=== PATIENT | female | born 1985 | race Caucasian/White ===

== ENCOUNTER 2019-03-25 03:01 | Emergency (ER) | payer SELFPAY ==
[2019-03-25] MEDS ORDERED: HYDROcodone/Acetaminophen 10/325 mg Tablet ONE (03:19)
[2019-03-25] MEDS ORDERED: Clindamycin 150 MG CAP ONE (03:20)
[2019-03-25] MEDS ORDERED: Ibuprofen 800 MG TAB ONE (03:20)
[2019-03-25] MEDS ORDERED: Acetaminophen 325 MG TAB ONE (03:20)
== END 2019-03-25 03:29 | disposition home or self-care (01) ==
LOC: MADERS 03:01
DX: K04.7 Periapical abscess without sinus (principal); K02.9 Dental caries, unspecified; F41.9 Anxiety disorder, unspecified; F17.210 Nicotine dependence, cigarettes, uncomplicated
CPT/HCPCS: 99282

== ENCOUNTER 2019-03-25 22:41 | Emergency (ER) | payer SELFPAY ==
[2019-03-25] MEDS ORDERED: diphenhydrAMINE 50 MG/ML VIAL ONE (23:09)
[2019-03-25] MEDS ORDERED: Ketorolac Tromethamine 30 MG/ML VIAL ONE (23:09)
[2019-03-25] MEDS ORDERED: Sodium Chloride 0.9% 1,000 ML ONE (23:09)
[2019-03-25] MEDS ORDERED: Promethazine HCl 25 MG/ML VIAL ONE (23:09)
== END 2019-03-26 00:10 | disposition home or self-care (01) ==
LOC: MADERS 22:41
DX: G43.909 Migraine, unspecified, not intractable, without status migrainosus (principal); F17.210 Nicotine dependence, cigarettes, uncomplicated; Z79.891 Long term (current) use of opiate analgesic; Z79.1 Long term (current) use of non-steroidal anti-inflammatories (NSAID); Z79.899 Other long term (current) drug therapy
CPT/HCPCS: 96361; 96374; 96375; J1200; J1885; J2550; J7050

== ENCOUNTER 2019-05-17 16:56 | Emergency (ER) | payer MEDICAID, SELFPAY ==
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
[2019-05-17] MEDS ORDERED: HYDROcodone/Acetaminophen 5/325 mg Tablet ONE (19:22)
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
== END 2019-05-17 19:25 | disposition home or self-care (01) ==
LOC: MADERS 16:56
DX: S39.012A Strain of muscle, fascia and tendon of lower back, initial encounter (principal); S16.1XXA Strain of muscle, fascia and tendon at neck level, initial encounter; M51.36 Other intervertebral disc degeneration, lumbar region; G43.909 Migraine, unspecified, not intractable, without status migrainosus; F41.9 Anxiety disorder, unspecified; F17.210 Nicotine dependence, cigarettes, uncomplicated; Z79.899 Other long term (current) drug therapy; V89.2XXA Person injured in unspecified motor-vehicle accident, traffic, initial encounter
CPT/HCPCS: 70450; 72125; 72131; 99406

== ENCOUNTER 2019-08-10 14:40 | Emergency (ER) | payer SELFPAY | END 2019-08-10 15:05 | disposition left against medical advice (07) | LOC: MADERS 14:40 | DX: Z53.21 Procedure and treatment not carried out due to patient leaving prior to being seen by health care provider (principal) ==

== ENCOUNTER 2019-08-11 13:52 | Emergency (ER) | payer SELFPAY | END 2019-08-11 14:36 | disposition home or self-care (01) | LOC: MADERS 13:52 | DX: M54.5 Low back pain (principal); F41.9 Anxiety disorder, unspecified; F17.210 Nicotine dependence, cigarettes, uncomplicated; W01.0XXA Fall on same level from slipping, tripping and stumbling without subsequent striking against object, initial encounter | CPT/HCPCS: 99283 ==

== ENCOUNTER 2019-09-06 12:55 | Emergency (ER) | payer SELFPAY ==
[2019-09-06] MEDS ORDERED: Iopamidol 370 76% 100 ML VIAL ONE (12:56)
[2019-09-06 13:17] LABS: Bilirubin Negative (Negative); Blood, Urine Negative (Negative); Clarity Hazy (Clear); Glucose, Urine (Dipstick) Negative (Negative); Leukocyte Small (Negative); Nitrite Negative (Negative); Protein, Urine (Dipstick) Negative (Neg-Trace); Urobilinogen 0.2 mg/dL (Less than 2)
[2019-09-06 13:18] LABS: Pregnancy Test - Urine (BHCG) Negative (Negative); Pregu Control Background? CLEAR/WHITE (CLR/WHITE); Pregu Control Bar Appear? YES (CONTROL BAR)
[2019-09-06 13:23] LABS: Bacteria/HPF Rare-Few HPF (None Seen); RBC/HPF 0-3 HPF (0-3)
[2019-09-06] MEDS ORDERED: Sodium Chloride 0.9% 1,000 ML ONE (13:25)
[2019-09-06] MEDS ORDERED: Ketorolac Tromethamine 30 MG/ML VIAL ONE (13:25)
[2019-09-06 14:02] LABS: ALT (SGPT) 8 U/L (8-55); AST (SGOT) 13 U/L (5-34); Albumin 4.4 g/dL (3.5-5.0); Alkaline Phosphatase 87 U/L (40-110); Anion Gap 15 mmol/L (10-20); BUN (Urea Nitrogen) 16 mg/dL (7.0-18.7); CRP (Inflammatory) 8.58 mg/dL (= or < 0.5); Calc. Creatinine Clearance 0 mL/min (70-130); Carbon Dioxide 21 mmol/L (22-29); Chloride 105 mmol/L (98-107); Estimated GFR-MDRD 78; Globulin 3.2 g/dL (2.4-3.5); Glucose 94 mg/dL (70-105); Lipase 18 U/L (8-78); Protein, Total 7.6 g/dL (6.0-8.3); Sodium 137 mmol/L (136-145)
[2019-09-06 14:10] LABS: Giant Platelets SLIGHT; Hemoglobin 13.6 g/dL (12.0-16.0); Large Platelets MODERATE; Lymphocytes 2 % (21-51); MDiff Complete? YES; Mean Corpuscular HGB CONC 33.1 g/dL (32.0-36.0); Mean Corpuscular Hemoglobin 31.9 pg (27.0-31.0); Mean Corpuscular Volume 96.4 fL (78.0-98.0); Mean Platelet Volume 12.3 fL (7.4-10.4); Monocytes 6 % (0-10); Neutrophil 88 % (42-75); Platelet Count 187 thou/uL (130-400); Platelet Morphology Comment Appears Adequate; RBC Distribution Width 13.4 % (11.5-14.5); RBC Morphology Normal; Reactive Lymphocytes 4 % (0-10); Red Blood Cell (RBC) Count 4.27 mill/uL (4.20-5.40); White Blood Cell (WBC) Count 16.5 thou/uL (4.8-10.8)
[2019-09-06] MEDS ORDERED: Cefepime 2 GM VIAL ONE (14:38)
[2019-09-06] MEDS ORDERED: Sodium Chloride 0.9% 100 ML ONE (14:38)
[2019-09-06] MEDS ORDERED: Vancomycin 1.5 GRAM/300 ML BAG 1.5 GM/300 ML BAG ONE (14:39)
--- NOTE | 2019-09-06 14:43 | CT ---
CT ABDOMEN AND PELVIS WITH IV CONTRAST: INDICATION: Left lower quadrant pain. COMPARISON: Correlation is made to a noncontrast CT abdomen and pelvis 03/10/2019. FINDINGS: Lung bases clear. Liver, spleen, and pancreas appear unremarkable. Post cholecystectomy change. Adrenal glands normal. There is moderately severe left hydronephrosis with dilatation of the proximal and mid left ureter. The left ureter is dilated to the left adnexal region where there is a complex multicystic mass which appears to be compressing the distal left ureter. The right kidney and right urinary tract are unremarkable. Images through the pelvis show an IUD in the endometrial cavity. There is a right ovarian cyst which measures approximately 2.5 cm. A multiloculated multicystic complex mass in the left adnexa as noted above is seen. No significant inflammatory change. The overall dimensions measured approximately 6 cm AP dimension. The left fall opian tube is dilated. There is a small amount of fluid in the left adnexa and there is a fluid dens e collection which appears circumscribed seen anterior to this large multicystic mass which measures approximately 3 cm. The small bowel loops are normal caliber. The appendix appears normal. The colon is unremarkable an d filled with stool throughout it. IMPRESSION: A multiloculated/multicystic mass in the left adnexa with surrounding inflammatory change and fluid i n the left adnexa measuring up to 6 cm. This involves the left ovary and some of these cystic areas may represent ovarian follicles. There is hydrosalpinx. This appears to be obstructing the distal le ft ureter and there is moderately severe associated left hydronephrosis. Recommend [employer] and urology consultation. POS: [facility]
[2019-09-06 15:45] LABS: #Basophils 0.1 thou/uL (0.0-0.2); #Eosinphils 0.1 thou/uL (0.0-0.7); #Lymphocytes 1.6 thou/uL (1.20-3.40); #Monocytes 1.4 thou/uL (0.11-0.59); #Neutrophils 13.1 thou/uL (1.40-6.50); %Basophils 0.6 % (0.0-1.0); %Eosinophils 0.9 % (0.0-10.0); %Monocytes 8.5 % (0.0-10.0); %Neutrophils 80.1 % (42.0-75.0)
== END 2019-09-06 16:01 | disposition short-term general hospital (02) ==
LOC: MADERS 12:55
DX: N70.93 Salpingitis and oophoritis, unspecified (principal); N13.30 Unspecified hydronephrosis; G43.909 Migraine, unspecified, not intractable, without status migrainosus; F41.9 Anxiety disorder, unspecified; F17.210 Nicotine dependence, cigarettes, uncomplicated
CPT/HCPCS: 74177; 80053; 81003; 81015; 81025; 83605; 83690; 85025; 86140; 87040; 96361; 96365; 96367; 96375; J0692; J1885; J3490; J7050; Q9967

== ENCOUNTER 2020-03-01 19:22 | Emergency (ER) | payer SELFPAY ==
[2020-03-01] MEDS ORDERED: diphenhydrAMINE 50 MG/ML VIAL ONE (20:15)
[2020-03-01] MEDS ORDERED: Sodium Chloride 0.9% 1,000 ML ONE (20:15)
[2020-03-01] MEDS ORDERED: Prochlorperazine 10 MG/2 ML VIAL ONE (20:15)
[2020-03-01] MEDS ORDERED: Ketorolac Tromethamine 30 MG/ML VIAL ONE (20:15)
== END 2020-03-01 22:07 | disposition home or self-care (01) ==
LOC: MADERS 19:22
DX: G43.909 Migraine, unspecified, not intractable, without status migrainosus (principal); R11.10 Vomiting, unspecified; Z86.73 Personal history of transient ischemic attack (TIA), and cerebral infarction without residual deficits; F41.9 Anxiety disorder, unspecified; F17.210 Nicotine dependence, cigarettes, uncomplicated
CPT/HCPCS: 96365; 96375; J0780; J1200; J1885; J7050

== ENCOUNTER 2020-04-24 13:19 | Emergency (ER) | payer SELFPAY ==
--- NOTE | 2020-04-24 14:30 | RAD ---
Right foot:3 views INDICATION:Foot pain COMPARISON:None FINDINGS: Tarsals appear intact. Metatarsals appear intact. Phalanges appear intact. Mild degenerative change at the tarsal metatarsal joint. Pins transfix medial malleolus and distal tibia and fibula. Degenerative change at the tibiotalar ortiz nt. Soft tissues unremarkable. IMPRESSION: No acute finding
[2020-04-24 14:45] LABS: #Basophils 0.2 thou/uL (0.0-0.2); #Eosinphils 0.4 thou/uL (0.0-0.7); #Lymphocytes 2.2 thou/uL (1.20-3.40); #Monocytes 0.7 thou/uL (0.11-0.59); %Basophils 1.6 % (0.0-1.0); %Eosinophils 3.9 % (0.0-10.0); %Lymphocytes 21.2 % (21.0-51.0); %Monocytes 6.4 % (0.0-10.0); %Neutrophils 66.8 % (42.0-75.0); Anisocytosis SLIGHT = 6-15 cells (100X) (0-5/hpf); Hemoglobin 15.1 g/dL (12.0-16.0); Large Platelets SLIGHT; MDiff Complete? YES; Macrocytosis SLIGHT = 6-15 cells (100X) (0-5/hpf); Mean Corpuscular HGB CONC 32.3 g/dL (32.0-36.0); Mean Corpuscular Volume 99.1 fL (78.0-98.0); Mean Platelet Volume 13.6 fL (7.4-10.4); Platelet Count 160 thou/uL (130-400); Platelet Morphology Comment Appears Adequate; RBC Distribution Width 11.6 % (11.5-14.5); Red Blood Cell (RBC) Count 4.72 mill/uL (4.20-5.40); White Blood Cell (WBC) Count 10.5 thou/uL (4.8-10.8)
[2020-04-24 14:51] LABS: ALT (SGPT) 12 U/L (8-55); AST (SGOT) 16 U/L (5-34); Alkaline Phosphatase 83 U/L (40-110); Anion Gap 15 mmol/L (10-20); BUN (Urea Nitrogen) 18 mg/dL (7.0-18.7); Bilirubin, Total 0.7 mg/dL (0.2-1.2); Calc. Creatinine Clearance 0 mL/min (70-130); Calcium 8.9 mg/dL (7.8-10.44); Carbon Dioxide 23 mmol/L (22-29); Chloride 107 mmol/L (98-107); Estimated GFR-MDRD 72; Globulin 3.7 g/dL (2.4-3.5); Glucose 142 mg/dL (70-105); Protein, Total 7.7 g/dL (6.0-8.3); Sodium 141 mmol/L (136-145)
== END 2020-04-24 15:15 | disposition home or self-care (01) ==
LOC: MADERS 13:19
DX: M10.9 Gout, unspecified (principal); G43.909 Migraine, unspecified, not intractable, without status migrainosus; F41.9 Anxiety disorder, unspecified; F17.210 Nicotine dependence, cigarettes, uncomplicated; I71.01 Dissection of thoracic aorta; Z86.73 Personal history of transient ischemic attack (TIA), and cerebral infarction without residual deficits
CPT/HCPCS: 36415; 80053; 84550; 85025

== ENCOUNTER 2020-10-22 08:21 | Emergency (ER) | payer OTHER, SELFPAY | END 2020-10-22 08:55 | disposition home or self-care (01) | LOC: MADERS 08:21 | DX: M62.830 Muscle spasm of back (principal); F17.210 Nicotine dependence, cigarettes, uncomplicated; G43.909 Migraine, unspecified, not intractable, without status migrainosus; Z86.73 Personal history of transient ischemic attack (TIA), and cerebral infarction without residual deficits; X50.9XXA Other and unspecified overexertion or strenuous movements or postures, initial encounter | CPT/HCPCS: 99283 ==

== ENCOUNTER 2021-06-23 18:11 | Emergency (ER) | payer SELFPAY | END 2021-06-23 20:35 | disposition left against medical advice (07) | LOC: MADERS 18:11 | DX: Z53.21 Procedure and treatment not carried out due to patient leaving prior to being seen by health care provider (principal) ==

== ENCOUNTER 2021-07-10 22:11 | Emergency (ER) | payer SELFPAY ==
[2021-07-10] MEDS ORDERED: Iopamidol 370 76% 125 ML VIAL FS ONE (22:12)
[2021-07-10] MEDS ORDERED: Sodium Chloride 0.9% 100 ML BAG IVPB ONE (22:12)
[2021-07-10 23:20] LABS: Eosinophils 5 % (0-10); Hemoglobin 14.1 g/dL (12.0-16.0); Lymphocytes 35 % (21-51); MDiff Complete? YES; Mean Corpuscular HGB CONC 33.6 g/dL (32.0-36.0); Mean Corpuscular Hemoglobin 31.8 pg (27.0-31.0); Mean Corpuscular Volume 94.6 fL (78.0-98.0); Mean Platelet Volume 9.8 fL (7.4-10.4); Monocytes 7 % (0-10); Neutrophil 53 % (42-75); Platelet Count 193 thou/uL (130-400); Platelet Morphology Comment Appears Adequate; RBC Distribution Width 11.7 % (11.5-14.5); RBC Morphology Normal; Red Blood Cell (RBC) Count 4.43 mill/uL (4.20-5.40); White Blood Cell (WBC) Count 13.9 thou/uL (4.8-10.8)
[2021-07-10 23:25] LABS: ALT (SGPT) 12 U/L (8-55); AST (SGOT) 17 U/L (5-34); Albumin 3.8 g/dL (3.5-5.0); Alkaline Phosphatase 74 U/L (40-110); Anion Gap 14 mmol/L (10-20); BUN (Urea Nitrogen) 11 mg/dL (7.0-18.7); Bilirubin, Total 0.4 mg/dL (0.2-1.2); CK (CPK) 51 U/L (29-168); Calc. Creatinine Clearance 0 mL/min (70-130); Calcium 8.5 mg/dL (7.8-10.44); Carbon Dioxide 21 mmol/L (22-29); Chloride 109 mmol/L (98-107); Globulin 3.7 g/dL (2.4-3.5); Glucose 85 mg/dL (70-105); Potassium 4.2 mmol/L (3.5-5.1); Protein, Total 7.5 g/dL (6.0-8.3); Sodium 140 mmol/L (136-145)
[2021-07-10 23:26] LABS: CKMB 0.3 ng/mL (0-6.6)
[2021-07-11] MEDS ORDERED: Ketorolac Tromethamine 30 MG/ML VIAL ONE (01:11)
[2021-07-11] MEDS ORDERED: Ondansetron PF 4 MG/2 ML Vial ONE (01:11)
== END 2021-07-11 01:25 | disposition home or self-care (01) ==
LOC: MADERS 22:11
DX: S76.911A Strain of unspecified muscles, fascia and tendons at thigh level, right thigh, initial encounter (principal); R09.1 Pleurisy; I45.89 Other specified conduction disorders; F17.210 Nicotine dependence, cigarettes, uncomplicated; X58.XXXA Exposure to other specified factors, initial encounter; Z86.73 Personal history of transient ischemic attack (TIA), and cerebral infarction without residual deficits
CPT/HCPCS: 71045; 71275; 80053; 82550; 82553; 83880; 84484; 85025; 85379; 93005; 96374; 96375; J1885; J2405; Q9967

== ENCOUNTER 2021-12-25 11:11 | Emergency (ER) | payer SELFPAY ==
[2021-12-25] MEDS ORDERED: Fluorescein Opthalmic Strip ONE (11:32)
[2021-12-25] MEDS ORDERED: Tetracaine 0.5% PF 4 ML BOT ONE (11:32)
[2021-12-25] MEDS ORDERED: Erythromycin Base 0.5% Ophth Oint 3.5 gm Tube ONE (11:50)
== END 2021-12-25 11:58 | disposition home or self-care (01) ==
LOC: MADERS 11:11
DX: H10.9 Unspecified conjunctivitis (principal); F17.210 Nicotine dependence, cigarettes, uncomplicated; Z86.73 Personal history of transient ischemic attack (TIA), and cerebral infarction without residual deficits

== ENCOUNTER 2022-02-25 07:06 | Emergency (ER) | payer SELFPAY ==
[~2022-02-25 07:06] MED LIST: Sodium Chloride 0.9% 100 ML BAG ONE
[2022-02-25 07:54] LABS: Bilirubin Negative (Negative); Blood, Urine Small (Negative); Clarity Clear (Clear); Glucose, Urine (Dipstick) Negative (Negative); Ketone, Urine Negative (Negative); Leukocyte Small (Negative); Nitrite Positive (Negative); Protein, Urine (Dipstick) 100 mg/dL (Neg-Trace); Urobilinogen 0.2 mg/dL (Less than 2); pH, Urine 8.5 (5.0-9.0)
[2022-02-25 07:57] LABS: Pregnancy Test - Urine (BHCG) Negative (Negative); Pregu Control Background? CLEAR/WHITE (CLR/WHITE); Pregu Control Bar Appear? YES (CONTROL BAR)
[2022-02-25 08:02] LABS: Bacteria/HPF 3+ HPF (None Seen); RBC/HPF 0-3 HPF (0-3); WBC/HPF Greater than 50 HPF (0-3)
[2022-02-25 08:04] LABS: #Basophils 0.1 thou/uL (0.0-0.2); #Eosinphils 0.1 thou/uL (0.0-0.7); #Lymphocytes 1.7 thou/uL (1.20-3.40); #Monocytes 0.5 thou/uL (0.11-0.59); #Neutrophils 11.8 thou/uL (1.40-6.50); %Eosinophils 0.7 % (0.0-10.0); %Lymphocytes 12.3 % (21.0-51.0); %Monocytes 3.4 % (0.0-10.0); %Neutrophils 82.7 % (42.0-75.0); Hemoglobin 13.9 g/dL (12.0-16.0); Mean Corpuscular HGB CONC 32.2 g/dL (32.0-36.0); Mean Corpuscular Hemoglobin 31.7 pg (27.0-31.0); Mean Corpuscular Volume 98.4 fL (78.0-98.0); Mean Platelet Volume 12.2 fL (7.4-10.4); Platelet Count 176 thou/uL (130-400); Red Blood Cell (RBC) Count 4.39 mill/uL (4.20-5.40); White Blood Cell (WBC) Count 14.2 thou/uL (4.8-10.8)
[2022-02-25 08:06] LABS: ALT (SGPT) 9 U/L (8-55); AST (SGOT) 11 U/L (5-34); Alkaline Phosphatase 100 U/L (40-110); Anion Gap 10 mmol/L (10-20); BUN (Urea Nitrogen) 15 mg/dL (7.0-18.7); Bilirubin, Total 0.7 mg/dL (0.2-1.2); Calc. Creatinine Clearance 0 mL/min (70-130); Calcium 9.2 mg/dL (7.8-10.44); Carbon Dioxide 24 mmol/L (22-29); Chloride 108 mmol/L (98-107); Estimated GFR 97; Globulin 3.5 g/dL (2.4-3.5); Glucose 116 mg/dL (70-105); Lipase 20 U/L (8-78); Potassium 4.1 mmol/L (3.5-5.1); Protein, Total 7.5 g/dL (6.0-8.3); Sodium 138 mmol/L (136-145)
[2022-02-25 08:13] LABS: Anisocytosis SLIGHT = 6-15 cells (100X) (0-5/hpf); Platelet Morphology Comment Appears Adequate
[2022-02-25] MEDS ORDERED: Ketorolac Tromethamine 30 MG/ML VIAL ONE (08:30)
[2022-02-25] MEDS ORDERED: Ondansetron PF 4 MG/2 ML Vial ONE (08:30)
[2022-02-25] MEDS ORDERED: Cefepime 2 GM VIAL ONE (08:54)
[2022-02-25] MEDS ORDERED: metroNIDAZOLE 500 MG/100 ML BAG ONE (09:11)
[2022-02-25] MEDS ORDERED: Mag-Al Plus 1200 MG/1200 MG/120 MG/30 ML UDCUP ONE (09:11)
[2022-02-25] MEDS ORDERED: Iopamidol 370 76% 100 ML VIAL ONE (09:29)
[2022-02-25] MEDS ORDERED: Nicotine 7 MG PATCH ONE (10:47)
== END 2022-02-25 12:41 | disposition left against medical advice (07) ==
LOC: MADERS 07:06
DX: N70.93 Salpingitis and oophoritis, unspecified (principal); N30.00 Acute cystitis without hematuria; N12 Tubulo-interstitial nephritis, not specified as acute or chronic; N13.9 Obstructive and reflux uropathy, unspecified; F17.210 Nicotine dependence, cigarettes, uncomplicated; Z86.73 Personal history of transient ischemic attack (TIA), and cerebral infarction without residual deficits
CPT/HCPCS: 74177; 80053; 81003; 81015; 81025; 83605; 83690; 85025; 87040; 87077; 87086; 87186; 94760; 96365; 96367; 96375; J0692; J1885; J2405; J3490; Q9967

== ENCOUNTER 2022-03-03 02:41 | Emergency (ER) | payer SELFPAY ==
[2022-03-03 03:17] LABS: #Basophils 0.2 thou/uL (0.0-0.2); #Eosinphils 0.4 thou/uL (0.0-0.7); #Lymphocytes 2.2 thou/uL (1.20-3.40); #Neutrophils 10.1 thou/uL (1.40-6.50); %Basophils 1.4 % (0.0-1.0); %Eosinophils 2.9 % (0.0-10.0); %Lymphocytes 15.9 % (21.0-51.0); %Monocytes 7.3 % (0.0-10.0); %Neutrophils 72.5 % (42.0-75.0); Hemoglobin 13.3 g/dL (12.0-16.0); Mean Corpuscular HGB CONC 33.7 g/dL (32.0-36.0); Mean Corpuscular Hemoglobin 31.8 pg (27.0-31.0); Mean Corpuscular Volume 94.1 fL (78.0-98.0); Mean Platelet Volume 12.7 fL (7.4-10.4); Platelet Count 190 thou/uL (130-400); RBC Distribution Width 11.2 % (11.5-14.5); Red Blood Cell (RBC) Count 4.19 mill/uL (4.20-5.40); White Blood Cell (WBC) Count 13.9 thou/uL (4.8-10.8)
[2022-03-03] MEDS ORDERED: Prochlorperazine 10 MG/2 ML VIAL ONE (03:22)
[2022-03-03] MEDS ORDERED: Sodium Chloride 0.9% 1,000 ML ONE (03:22)
[2022-03-03] MEDS ORDERED: diphenhydrAMINE 50 MG/ML VIAL ONE (03:22)
[2022-03-03] MEDS ORDERED: Promethazine HCl 25 MG/ML VIAL ONE (03:24)
[2022-03-03] MEDS ORDERED: Sodium Chloride 0.9% 0 ML ONE (03:24)
[2022-03-03 03:26] LABS: BHCG - Serum Negative (NEGATIVE); Pregs Control Background? CLEAR/WHITE (CLR/WHITE); Pregs Control Bar Appear? YES (CONTROL BAR)
[2022-03-03 03:34] LABS: ALT (SGPT) 115 U/L (8-55); AST (SGOT) 192 U/L (5-34); Albumin 3.8 g/dL (3.5-5.0); Alkaline Phosphatase 235 U/L (40-110); Anion Gap 14 mmol/L (10-20); BUN (Urea Nitrogen) 10 mg/dL (7.0-18.7); Bilirubin, Total 0.7 mg/dL (0.2-1.2); Calc. Creatinine Clearance 0 mL/min (70-130); Calcium 9.4 mg/dL (7.8-10.44); Carbon Dioxide 26 mmol/L (22-29); Chloride 101 mmol/L (98-107); Estimated GFR 89; Globulin 3.6 g/dL (2.4-3.5); Glucose 123 mg/dL (70-105); Lipase 15 U/L (8-78); Potassium 3.6 mmol/L (3.5-5.1); Protein, Total 7.4 g/dL (6.0-8.3); Sodium 137 mmol/L (136-145)
[2022-03-03 04:39] LABS: Bilirubin Negative (Negative); Blood, Urine Large (Negative); Glucose, Urine (Dipstick) Negative (Negative); Ketone, Urine Negative (Negative); Leukocyte Negative (Negative); Nitrite Negative (Negative); Protein, Urine (Dipstick) 100 mg/dL (Neg-Trace); Specific Gravity, Urine 1.025 (1.005-1.030); Urobilinogen 0.2 mg/dL (Less than 2)
[2022-03-03 04:45] LABS: Clarity Cloudy (Clear)
[2022-03-03 04:46] LABS: Bacteria/HPF Rare-Few HPF (None Seen); RBC/HPF Greater than 50 HPF (0-3); WBC/HPF 0-3 HPF (0-3)
[2022-03-03] MEDS ORDERED: Iopamidol 370 76% 100 ML VIAL ONE (10:05)
== END 2022-03-03 09:30 | disposition short-term general hospital (02) ==
LOC: MADERS 02:41
DX: K83.1 Obstruction of bile duct (principal); R11.2 Nausea with vomiting, unspecified; N70.93 Salpingitis and oophoritis, unspecified; F17.210 Nicotine dependence, cigarettes, uncomplicated; Z86.73 Personal history of transient ischemic attack (TIA), and cerebral infarction without residual deficits; Z79.899 Other long term (current) drug therapy
CPT/HCPCS: 74177; 80053; 81003; 81015; 83605; 83690; 84703; 85025; 87086; 96365; 96367; 96375; J0780; J1200; J1956; J2550; J7050; Q9967

== ENCOUNTER 2022-12-20 06:46 | Emergency (ER) | payer OTHER ==
[2022-12-20] MEDS ORDERED: Ketorolac Tromethamine 30 MG/ML VIAL ONE (07:05)
[2022-12-20] MEDS ORDERED: Sodium Chloride 0.9% 1,000 ML ONE ×2 (07:05→08:47)
[2022-12-20] MEDS ORDERED: Ondansetron PF 4 MG/2 ML Vial ONE (07:05)
[2022-12-20 07:20] LABS: BHCG - Serum Negative (NEGATIVE); Pregs Control Background? CLEAR/WHITE (CLR/WHITE); Pregs Control Bar Appear? YES (CONTROL BAR)
[2022-12-20 07:26] LABS: Hemoglobin 14.6 g/dL (12.0-16.0); Mean Corpuscular Hemoglobin 33.7 pg (27.0-31.0); Mean Corpuscular Volume 96.2 fl (78.0-98.0); Platelet Count 240 10x3/uL (130-400); RBC Distribution Width 11.7 % (11.5-14.5); Red Blood Cell (RBC) Count 4.32 mill/uL (4.20-5.40); White Blood Cell (WBC) Count 15.6 10x3/uL (4.8-10.8)
[2022-12-20 07:28] LABS: Acetaminophen Less than 10 mcg/mL (10.0-30.0); Alcohol Less than 10.0 mg/dL (Less than 10); Salicylate Less than 8.0 mg/dL (15.0-30.0)
[2022-12-20 07:31] LABS: ALT (SGPT) 11 U/L (8-55); AST (SGOT) 9 U/L (5-34); Alkaline Phosphatase 102 U/L (40-110); Anion Gap 17 mmol/L (10-20); BUN (Urea Nitrogen) 12 mg/dL (7.0-18.7); Bilirubin, Total 0.4 mg/dL (0.2-1.2); Calc. Creatinine Clearance 0 mL/min (70-130); Calcium 9.1 mg/dL (7.8-10.44); Carbon Dioxide 20 mmol/L (22-29); Chloride 106 mmol/L (98-107); Estimated GFR 75; Globulin 3.2 g/dL (2.4-3.5); Glucose 131 mg/dL (70-105); Lipase 30 U/L (8-78); Magnesium 1.8 mg/dL (1.6-2.6); Potassium 4.1 mmol/L (3.5-5.1); Protein, Total 7.2 g/dL (6.0-8.3); Sodium 139 mmol/L (136-145)
[2022-12-20 07:43] LABS: Eosinophils 4 % (0-10); Large Platelets SLIGHT (None Seen); Lymphocytes 21 % (21-51); MDiff Complete? YES; Monocytes 6 % (0-10); Neutrophil 69 % (42-75); Platelet Adequacy Comment Appears Adequate
[2022-12-20 08:18] LABS: Bilirubin Small (Negative); Blood, Urine Large (Negative); Glucose, Urine (Dipstick) Negative (Negative); Ketone, Urine Trace mg/dL (Negative); Leukocyte Small (Negative); Nitrite Positive (Negative); Protein, Urine (Dipstick) > or equal to 300 mg/dL (Neg-Trace); Urobilinogen 0.2 mg/dL (Less than 2)
[2022-12-20 08:24] LABS: Clarity Cloudy (Clear)
[2022-12-20 08:26] LABS: Cocaine Metabolite Screen Not Detected (NotDetected); Methamphetamine Not Detected (NotDetected); Opiate Screen Not Detected (NotDetected); Phencyclidine (PCP) Not Detected (NotDetected); THC/Cannabinoid Screen Detected (NotDetected)
[2022-12-20 08:27] LABS: Amphetamine Not Detected (NotDetected); Barbiturates Screen Not Detected (NotDetected); Benzodiazepine Screen Detected (NotDetected); Methadone Not Detected (NotDetected); Oxycodone Screen Not Detected (NotDetected); Tricyclic Screen Not Detected (NotDetected)
[2022-12-20 08:29] LABS: Bacteria/HPF 2+ HPF (None Seen); CAUTI Indications for Culture Pelvic or flank pain; RBC/HPF Greater than 50 HPF (0-3); Urine Culture Reflex Yes Yes; WBC/HPF Greater Than 50 HPF (0-3)
[2022-12-20] MEDS ORDERED: cefTRIAXone (ROCEPHIN) 2 GM VIAL ONE (08:47)
[2022-12-20] MEDS ORDERED: Sodium Chloride 0.9% 100 ML ONE (08:47)
[2022-12-20] MEDS ORDERED: Morphine 2 MG/ML VIAL ONE ×2 (09:42→10:12)
[2022-12-20] MEDS ORDERED: Promethazine HCl 25 MG/ML VIAL ONE (10:12)
[2022-12-20] MEDS ORDERED: Sodium Chloride 0.9% 50 ML ONE (10:12)
== END 2022-12-20 10:24 | disposition short-term general hospital (02) ==
LOC: MADERS 06:46
DX: N12 Tubulo-interstitial nephritis, not specified as acute or chronic (principal); Z87.42 Personal history of other diseases of the female genital tract; F17.210 Nicotine dependence, cigarettes, uncomplicated
CPT/HCPCS: 74176; 80053; 80306; 80307; 81001; 83690; 83735; 84703; 85025; 87077; 87086; 87186; 96361; 96365; 96375; J0696; J1885; J2272; J2405; J2550; J3490; J7050

== ENCOUNTER 2023-04-28 16:02 | Emergency (ER) | payer OTHER ==
[2023-04-28] MEDS ORDERED: Ibuprofen 600 MG TAB ONE (16:34)
[2023-04-28] MEDS ORDERED: Ibuprofen 200 MG TAB ONE (16:38)
[2023-04-28 17:26] LABS: SARS-CoV-2 NAA Rapid Test Not Detected (NotDetected)
== END 2023-04-28 17:39 | disposition home or self-care (01) ==
LOC: MADERS 16:02
DX: B34.9 Viral infection, unspecified (principal); J06.9 Acute upper respiratory infection, unspecified; I10 Essential (primary) hypertension; F17.210 Nicotine dependence, cigarettes, uncomplicated; Z20.822 Contact with and (suspected) exposure to COVID-19
CPT/HCPCS: 87081; 87430; 99283

== ENCOUNTER 2023-05-07 11:39 | Emergency (ER) | payer OTHER | END 2023-05-07 12:41 | disposition home or self-care (01) | LOC: MADERS 11:39 | DX: J02.9 Acute pharyngitis, unspecified (principal); I10 Essential (primary) hypertension; F17.210 Nicotine dependence, cigarettes, uncomplicated | CPT/HCPCS: 87081; 87430; 99283 ==

== ENCOUNTER 2023-06-23 17:51 | Emergency (ER) | payer OTHER | END 2023-06-23 18:25 | disposition left against medical advice (07) | LOC: MADERS 17:51 | DX: Z53.21 Procedure and treatment not carried out due to patient leaving prior to being seen by health care provider (principal) ==

== ENCOUNTER 2023-06-24 15:06 | Emergency (ER) | payer OTHER ==
[2023-06-24 16:47] LABS: Pregnancy Test - Urine (BHCG) Negative (Negative); Pregu Control Background? CLEAR/WHITE (CLR/WHITE); Pregu Control Bar Appear? YES (CONTROL BAR); Specific Gravity 1.014 (1.002-1.036)
== END 2023-06-24 18:12 | disposition home or self-care (01) ==
LOC: MADERS 15:06
DX: J20.9 Acute bronchitis, unspecified (principal); F17.210 Nicotine dependence, cigarettes, uncomplicated
CPT/HCPCS: 71046; 81025; 87081; 87430; 93005

== ENCOUNTER 2024-02-28 14:24 | Emergency (ER) | payer OTHER ==
[2024-02-28] MEDS ORDERED: Methocarbamol 500 MG TAB ONE (15:17)
[2024-02-28] MEDS ORDERED: traMADol HCl 50 MG TAB ONE (15:17)
== END 2024-02-28 16:35 | disposition home or self-care (01) ==
LOC: MADERS 14:24
DX: M54.50 Low back pain, unspecified (principal); F17.210 Nicotine dependence, cigarettes, uncomplicated; I10 Essential (primary) hypertension
CPT/HCPCS: 72131

== ENCOUNTER 2025-01-22 15:49 | Emergency (ER) | payer OTHER, SELFPAY ==
[2025-01-22] MEDS ORDERED: Ketorolac Tromethamine 30 MG (1 mL) VIAL ONE (16:13)
[2025-01-22] MEDS ORDERED: Acetaminophen 500 MG TAB ONE (16:13)
[2025-01-22] MEDS ORDERED: Ondansetron PF 4 MG/2 ML Vial ONE (16:13)
[2025-01-22 16:16] LABS: Glucose, Urine (Dipstick) Negative (Negative); Leukocyte Negative (Negative); Protein, Urine (Dipstick) 100 mg/dL (Neg-Trace); Specific Gravity, Urine Greater/Equal 1.030 (1.005-1.030)
[2025-01-22 16:27] LABS: CAUTI Indications for Culture Dysuria,urgency,freq
[2025-01-22 16:28] LABS: Bacteria/HPF 2+ HPF (None Seen)
[2025-01-22 16:29] LABS: Urine Culture Reflex No No
[2025-01-22 16:39] LABS: Anisocytosis SLIGHT = 6-15 cells (100X) (0-5/hpf); Hematocrit 37.1 % (36.0-47.0); Hemoglobin 12.5 g/dL (12.0-16.0); MDiff Complete? YES; Mean Corpuscular Hemoglobin 31.6 pg (27.0-31.0); Mean Corpuscular Volume 93.5 fl (78.0-98.0); Platelet Adequacy Comment Appears Adequate; Platelet Count 176 10x3/uL (130-400); Red Blood Cell (RBC) Count 3.97 mill/uL (4.20-5.40); White Blood Cell (WBC) Count 11.6 10x3/uL (4.8-10.8)
[2025-01-22 16:40] LABS: BHCG - Serum Negative (NEGATIVE); Pregs Control Background? CLEAR/WHITE (CLR/WHITE); Pregs Control Bar Appear? YES (CONTROL BAR)
[2025-01-22 16:45] LABS: ALT (SGPT) 11 U/L (Less than 34); AST (SGOT) 16 U/L (11-34); Albumin 3.4 g/dL (3.1-4.5); Alkaline Phosphatase 83 U/L (40-110); Anion Gap 15 mmol/L (10-20); BUN (Urea Nitrogen) 20 mg/dL (7.0-18.7); Bilirubin, Total 1.1 mg/dL (0.3-1.2); Calc. Creatinine Clearance 0 mL/min (70-130); Calcium 8.5 mg/dL (7.8-10.44); Carbon Dioxide 20 mmol/L (22-29); Chloride 107 mmol/L (98-107); Globulin 3.5 g/dL (2.4-3.5); Glucose 117 mg/dL (70-105); Potassium 3.7 mmol/L (3.5-5.1); Sodium 138 mmol/L (136-145)
[2025-01-22] MEDS ORDERED: cefTRIAXone (ROCEPHIN) 1 GM VIAL ONE (17:35)
[2025-01-22] MEDS ORDERED: diphenhydrAMINE 50 MG/ML VIAL ONE (17:35)
[2025-01-22] MEDS ORDERED: Metoclopramide HCl 10 MG (2 mL) VIAL ONE (17:35)
== END 2025-01-22 19:24 | disposition home or self-care (01) ==
LOC: MADERS 15:49
DX: A41.9 Sepsis, unspecified organism (principal); N10 Acute pyelonephritis; I10 Essential (primary) hypertension; F17.210 Nicotine dependence, cigarettes, uncomplicated
CPT/HCPCS: 36415; 80053; 81001; 84703; 85025; 87040; 87428; 96374; 96375; J0696; J1200; J1885; J2405; J2765; J7030